=== PATIENT | female | born 1940 | race African-American/Black ===

== ENCOUNTER 2023-12-28 17:45 | Emergency (ER) | payer OTHER ==
[~2023-12-28] VITALS: Ht 157.5 cm; Wt 74.0 kg
[2023-12-28 18:06] LABS: BASOPHILS % (AUTO) 0.5 % (0.0-2.0); EOSINOPHILS % (AUTO) 4.1 % (1.0-6.0); HEMATOCRIT 31.4 % (36-46); HEMOGLOBIN 9.9 g/dL (12.0-16.0); LYMPHOCYTES % (AUTO) 36.3 % (22.0-44.0); MEAN CORPUSCULAR HEMOGLOBIN 25.4 pg (26.0-34.0); MEAN CORPUSCULAR HGB CONC 31.5 G/dL (31.0-37.0); MEAN CORPUSCULAR VOLUME 81 fL (80-100); MONOCYTES # (AUTO) 1.1 K/uL (0.1-1.0); MONOCYTES % (AUTO) 19.6 % (2.0-9.0); NEUTROPHILS # (AUTO) 2.1 K/uL (1.8-7.7); NEUTROPHILS % (AUTO) 39.5 % (40.0-70.0); PLATELET COUNT (AUTO) 406 K/uL (150-450); RED CELL DISTRIBUTION WIDTH 18.5 % (11.5-14.5); WHITE BLOOD COUNT (AUTO) 5.4 K/uL (4.5-11.0)
[2023-12-28] MEDS ORDERED: SODIUM CHLORIDE 0.9% 100 ML ONE (18:10)
[2023-12-28] MEDS ORDERED: IOHEXOL 350 MG/ML 100 ML VIAL ONE (18:10)
[2023-12-28 18:16] VITALS: BP 167/98; PULSE 79; RESP 12; TEMP 97.6
[2023-12-28 18:17] LABS: ANION GAP 10 mmol/L (8-16); CALCIUM, TOTAL 8.7 mg/dL (8.8-10.5); CARBON DIOXIDE 25 mmol/L (22-29); CHLORIDE 104 mmol/L (98-107); CREATININE 0.73 mg/dL (0.60-1.30); GLOMERULAR FILTR. RATE CALC > 60 mL/min (>60); GLUCOSE,RANDOM 119 mg/dL (70-110); POTASSIUM 3.7 mmol/L (3.5-5.1); SODIUM SERUM 139 mmol/L (136-145); UREA NITROGEN, BLOOD 14 mg/dL (7-18)
[2023-12-28 18:19] LABS: INR 1.1 (0.9-1.1); PROTHROMBIN TIME 11.9 SEC (9.4-11.6)
[2023-12-28 18:22] LABS: ALANINE AMINOTRANSFERASE 7 U/L (12-78); ALKALINE PHOSPHATASE 83 U/L (46-116); ASPARTATE AMINOTRANSFERASE 21 U/L (15-37); BILIRUBIN,TOTAL 0.4 mg/dL (0.1-1.0); TOTAL PROTEIN, SERUM 7.2 g/dL (6.4-8.2)
[2023-12-28 18:28] LABS: TROPONIN I-HIGH SENSITIVITY 1525 ng/L (<51)
[2023-12-28 18:39] LABS: COVID AG,FIA SOURCE NASAL SWAB
[2023-12-28 18:45] LABS: APPEARANCE,URINE CLEAR (CLEAR); BILIRUBIN,URINE NEGATIVE (NEGATIVE); COLOR,URINE LIGHT YELLOW (YELLOW); GLUCOSE, URINE (UA) NEGATIVE (NEGATIVE); KETONES,URINE NEGATIVE (NEGATIVE); LEUKOCYTE ESTERASE ,URINE NEGATIVE (NEGATIVE); NITRATE,URINE NEGATIVE (NEGATIVE); OCCULT BLOOD,URINE NEGATIVE (NEGATIVE); PH,URINE 5.5 (5.0-8.0); PROTEIN,URINE NEGATIVE (NEGATIVE); SPECIFIC GRAVITIY, URINE 1.029 (1.003-1.030); UROBILINOGEN,URINE <=1.0 mg/dL (<=1.0)
[2023-12-28 18:50] LABS: ALCOHOL, URINE DRUG SCREEN NEGATIVE (NEGATIVE); AMPHET/METH SCREEN,URINE NEGATIVE (NEGATIVE); BARBITURATE SCREEN, URINE NEGATIVE (NEGATIVE); BENZODIAZEPINES SCREEN,URINE NEGATIVE (NEGATIVE); CANNABINOID SCREEN,URINE NEGATIVE (NEGATIVE); COCAINE SCREEN,URINE NEGATIVE (NEGATIVE); METHADONE SCREEN, URINE NEGATIVE (NEGATIVE); OPIATE SCREEN,URINE NEGATIVE (NEGATIVE); PHENCYCLIDINE SCREEN,URINE NEGATIVE (NEGATIVE)
[2023-12-28] MEDS: WATER FOR INJECTION STERILE IV ONE ×2 (18:58→19:00)
[2023-12-28] MEDS: ALTEPLASE IV ONE ×2 (18:58→19:00)
[2023-12-28 19:01] LABS: SARS-COV2 (COVID) ANTIGEN,FIA Negative (Negative)
[2023-12-28 19:10] LABS: PH,URINE DRUG SCREEN 5.5 (5.0-8.0)
[2023-12-28] MEDS: OXYGEN THERAPY IH SCH (19:13)
[2023-12-28 19:15] LABS: BACTERIA,URINE None Seen /HPF (None Seen); WBC,URINE 0-2 /HPF (0-5)
[2023-12-28 19:16] LABS: RBC,URINE None Seen /HPF (0-2)
[2023-12-28] MEDS ORDERED: METO25 PO (19:26)
[2023-12-28] MEDS ORDERED: FURO20TA4 PO (19:26)
[2023-12-28] MEDS ORDERED: POTA-92 PO (19:26)
== END 2023-12-28 19:55 | disposition short-term general hospital (02) ==
LOC: EDBD 17:45 → EMS 17:45
DX: I63.9 Cerebral infarction, unspecified (principal); R79.89 Other specified abnormal findings of blood chemistry; Z20.822 Contact with and (suspected) exposure to COVID-19
CPT/HCPCS: 99291; 70496; 96365; 71045; 87426; 80053; 81001; 84484; 85025; 85610; 86850; 86900; 86901; 36415; 70498; 82948; 93005; 96368; 80307; 70450; Q9967; J7050; J2997